=== PATIENT | female | born 1980 | race Caucasian/White ===

== ENCOUNTER 2016-12-25 01:14 | Emergency (ER) | payer MEDICARE, OTHER ==
[~2016-12-25] VITALS: Ht 160 cm; Wt 53.0 kg
[2016-12-25 01:17] VITALS: Ht 160 cm; Wt 53.0 kg
[2016-12-25] MEDS ORDERED: PRED50TA PO (04:50)
[2016-12-25] MEDS ORDERED: ASPI325T4 PO (04:50)
[2016-12-25] MEDS ORDERED: MYCO200S PO (04:50)
[2016-12-25] MEDS ORDERED: TACR1CAP PO (04:50)
[2016-12-25] MEDS ORDERED: TRAM50TA2 PO (04:51)
--- NOTE | 2016-12-25 04:51 | ERD ---
ER Documentation Chief Complaint Date/Time DATE: 12/25/16 TIME: 04:49 Chief Complaint Right Knee and right thigh pain that is not relieved with tramdol 50mg HPI 36-year-old female presents here in emergency department for complaint of right knee pain right thigh pain started 3 days ago, patient discussed the pain as throbbing pain, 6/10 scale, mildly better after taking tramadol. Patient did not have any trauma and affected area. Patient denies any redness or swelling. Patient denies any fever or chills. Patient was referred to an orthopedist specialist for evaluation, but cannot control the pain at this time is why he she is here in emergency department today. Patient denies any numbness or tingling. Patient denies any deformity. Patient denies any limitation movement of the joints. ROS All systems reviewed and are negative except as per history of present illness. 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 CHEST: Clear to auscultation bilaterally. There are no rales, wheezes or rhonchi. HEART: Regular rate and rhythm. No murmurs, clicks, rubs or gallops. No S3 or S4. ABDOMEN: Soft, nontender and nondistended. Good bowel sounds. No rebound or guarding. No gross peritonitis. No gross organomegaly or masses. No Parham sign or McBurney point tenderness. BACK: No midline or flank tenderness. EXTREMITIES: Notable to do full range of motion of the right hip and the right knee without any restriction, no redness or swelling noted in the right knee or the right thigh area, no ecchymosis noted. Equal pulses bilaterally. There is no peripheral clubbing, cyanosis or edema. No focal swelling or erythema. Full range of motion. Grossly neurovascularly intact. NEURO: Alert and oriented. Cranial nerves 2-12 intact. Motor strength in all 4 extremities with 5/5 strength. Sensation grossly intact. Normal speech and gait. SKIN: There is no apparent rash or petechia. The skin is warm and dry. HEMATOLOGIC AND LYMPHATIC: There is no evidence of excessive bruising or lymphedema. No gross cervical, axillary, or inguinal lymphadenopathy. Results 24 hrs PROCEDURE: XR right femur. CLINICAL INDICATION: Pain TECHNIQUE: AP and lateral views of the right femur were performed. COMPARISON: None. FINDINGS: The osseous structures demonstrate normal alignment and mineralization. No acute fracture or dislocation is seen. No osteochondral lesion or periostitis is identified. The soft tissues are unremarkable. IMPRESSION: Normal right femur. RPTAT: HH .Jennifer Lawler MD, Date Time Electronically viewed and signed by .Jennifer Lawler MD, on 12/25/2016 05 :13 .G/ CC: EMILEE LEGER NP PROCEDURE: XR Knee. CLINICAL INDICATION: Right knee pain TECHNIQUE: 3 views of the right knee are available for review. COMPARISON: None available FINDINGS: The osseous structures demonstrate normal alignment and mineralization. No acute fracture or dislocation is identified. There is no periostitis or osteochondral lesion. The joint spaces are well preserved. Vascular calcifications are seen within the soft tissues. IMPRESSION: Arterial atherosclerosis. Otherwise, unremarkable right knee x-rays. No significant interval change. RPTAT: HH .Jennifer Lawler MD, MD Date Time Electronically viewed and signed by .Jennifer Lawler MD, on 12/25/2016 05 :14 .G/ CC: EMILEE LEGER NP Procedures/MDM Medical Decision Making: Patient's pain is most likely consistent with a contusion or a sprain. There is no suspicion for neurovascular compromise. Patient has intact sensation and circulation of the affected extremity. There is low suspicion for septic arthritis. Patient does not have any fever. Radiology exams of the affected area does not show any fracture or dislocation. Disposition: Home. Patient is given prescription for ibuprofen for pain, [place] for severe pain. Patient was advised to elevate the affected area and apply ice on affected area. Patient was advised that if symptoms are worse, numbness, tingling, high fever, unable to move joint, worsening symptoms, to return to emergency department immediately. Otherwise, patient is advised to follow up with the primary care doctor in 5-7 days for reevaluation of symptoms. See orthopedic doctor as referred. Departure Diagnosis: Primary Impression: Right knee pain Chronicity: acute Qualified Code: M25.561 - Acute pain of right knee Additional Impression: Right thigh pain Condition: Stable Patient Instructions: Knee Pain, Uncertain Cause Additional Instructions: Patient is given prescription for ibuprofen for pain, [place] for severe pain. Patient was advised to elevate the affected area and apply ice on affected area. Patient was advised that if symptoms are worse, numbness, tingling, high fever, unable to move joint, worsening symptoms, to return to emergency department immediately. Otherwise, patient is advised to follow up with the primary care doctor in 5-7 days for reevaluation of symptoms. See orthopedic doctor as referred. EMILEE LEGER NP Dec 25, 2016 04:51
--- NOTE | 2016-12-25 05:14 | RADRPT ---
PROCEDURE: XR right femur. CLINICAL INDICATION: Pain TECHNIQUE: AP and lateral views of the right femur were performed. COMPARISON: None. FINDINGS: The osseous structures demonstrate normal alignment and mineralization. No acute fracture or disloc ation is seen. No osteochondral lesion or periostitis is identified. The soft tissues are unremark able. IMPRESSION: Normal right femur. RPTAT: HH .Jennifer Lawler MD, MD Date Time Electronically viewed and signed by .Jennifer Lawler MD, on 12/25/2016 05:13 .G/
--- NOTE | 2016-12-25 05:15 | RADRPT ---
PROCEDURE: XR Knee. CLINICAL INDICATION: Right knee pain TECHNIQUE: 3 views of the right knee are available for review. COMPARISON: None available FINDINGS: The osseous structures demonstrate normal alignment and mineralization. No acute fracture or disloc ation is identified. There is no periostitis or osteochondral lesion. The joint spaces are well pr eserved. Vascular calcifications are seen within the soft tissues. IMPRESSION: Arterial atherosclerosis. Otherwise, unremarkable right knee x-rays. No significant interval [facility] RPTAT: HH .Jennifer Lawler MD, MD Date Time Electronically viewed and signed by .Jennifer Lawler MD, MD on 12/25/2016 05:14 .G/
[2016-12-25] MEDS ORDERED: HYDR-906 PO (05:25)
[2016-12-25] MEDS ORDERED: IBUP400T22 PO (05:25)
[2016-12-25 05:32] VITALS: BP 145/69; PULSE 87; RESP 16
== END 2016-12-25 05:34 | disposition home or self-care (01) ==
LOC: FTE 01:14
DX: M25.561 Pain in right knee (principal); M79.651 Pain in right thigh; E10.9 Type 1 diabetes mellitus without complications; Z79.82 Long term (current) use of aspirin
CPT/HCPCS: 73550; 73562

== ENCOUNTER 2018-10-14 02:24 | Emergency (ER) | END 2018-10-14 05:25 | disposition home or self-care (01) ==

== ENCOUNTER 2018-10-30 14:12 | Emergency (ER) | END 2018-10-30 18:55 | disposition home or self-care (01) ==

== ENCOUNTER 2019-02-16 05:35 | Emergency (ER) | payer OTHER ==
[~2019-02-16] VITALS: Ht 154.9 cm; Wt 55.9 kg
[~2019-02-16 05:35] MED LIST: ASPI-817 PO; CNC30T PO; GABA-528 PO; MULTI PO; MYCO250C3 PO; OMEP20CA16 PO; ONDA4TAB8 PO; OXYC-279 PO; PANT40TA4 PO; PRED5TAB PO; SULF1TAB31 PO; TACR0.5C18 PO; TACR1CAP26 PO
[2019-02-16 05:39] VITALS: Ht 154.9 cm; Wt 55.9 kg
[2019-02-16] MEDS ORDERED: morphine 4 MG/ML VIAL IV STA (06:05)
[2019-02-16] MEDS ORDERED: ONDANSETRON 4 MG INJ IV STA (06:05)
[2019-02-16] MEDS ORDERED: PIPER-TAZO 3.375 GM IV (PMX) 100 ML IVPB ONE (07:30)
--- NOTE | 2019-02-16 07:59 | ERD ---
ER Documentation Chief Complaint Chief Complaint AP AND N/V X YESTERDAY HPI 39-year-old female presents to the emergency department complaining of abdominal pain. Patient was in her usual state of health until yesterday which time she began having the acute onset of a severe epigastric abdominal pain. This was associated with nausea and vomiting. She reports no fevers. She reports no diarrhea. She reports no urinary or gynecologic symptoms. Pain is similar to what she had in the past with a questionable gallstone attack is complications of her surgery that required release of adhesions. She currently reports the pain is moderate to severe. ROS All systems reviewed and are negative except as per history of present illness. Medications Home Meds Active Scripts Ondansetron Hcl* (Zofran*) 4 Mg Tablet, 4 MG PO Q6H for NAUSEA AND/OR VOMITING, #12 TAB Prov:ABIDA ARROYO MD 10/30/18 Oxycodone HCl/Acetaminophen (Percocet 5-325 mg Tablet) 1 Each Tablet, 1 EACH PO Q6 PRN for PAIN, #10 TAB Prov:ABIDA ARROYO MD 10/30/18 Reported Medications Sulfamethoxazole/Trimethoprim* (Bactrim Ds* Tablet) 1 Each Tablet, 1 TAB PO DAILY, TAB TAKE 1 TAB 2 TIMES A WEEK 10/30/18 Omeprazole* (Omeprazole*) 20 Mg Capsule.dr, 20 MG PO DAILY, #30 CAP 10/30/18 Gabapentin* (Gabapentin*) 800 Mg Tablet, 800 MG PO BID, #90 TAB 10/30/18 Cinacalcet* (Sensipar*) 30 Mg Tab, 30 MG PO BID, TAB 10/30/18 Multivitamins* (Theragran*) 1 Tab Tab, 1 TAB PO DAILY, TAB 10/30/18 Pantoprazole* (Pantoprazole*) 40 Mg Tablet.dr, 40 MG PO AC BREAKFAST DINNER, TAB 10/30/18 Aspirin* (Aspirin* EC) 81 Mg Tablet.dr, 81 MG PO DAILY, TAB 10/30/18 Prednisone* (Prednisone*) 5 Mg Tab, 5 MG PO DAILY, TAB 10/30/18 Mycophenolate Mofetil* (Cellcept*) 250 Mg Capsule, 750 MG PO BID, CAP 10/30/18 Tacrolimus* (Prograf*) 0.5 Mg Capsule, 0.5 MG PO Q12, CAP 10/30/18 Tacrolimus* (Prograf*) 1 Mg Capsule, 2 MG PO Q12, CAP 10/30/18 Allergies Allergies: Coded Allergies: metoclopramide (Verified Allergy, Unknown, 10/30/18) PMhx/Soc History of Surgery: Yes (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 She appears uncomfortable. HEENT: Pupils equal, round, and reactive to light. EOMI. There is no scleral icterus. NECK: C-spine is soft and supple, there is no meningismus. There is no cervical lymphadenopathy. LUNGS: Clear to auscultation bilaterally. There are no rales, wheezes or rhonchi. HEART: Regular rate and rhythm, no murmurs, clicks, rubs or gallops. ABDOMEN: Postoperative with surgical scars. Mild epigastric tenderness. No Parham sign. EXTREMITIES: There is no peripheral cyanosis or edema. No focal swelling or erythema. NEURO: The patient moves all four extremities with 5/5 strength. Cranial nerves II - XII are intact. Normal gait. Alert and oriented SKIN: There is no apparent rash or petechiae. HEME/LYMPHATIC: There is no evidence of excessive bruising or lymphedema. PSYCHIATRIC: The patient does not appear anxious or depressed. Result Diagram: 02/16/19 0610 02/16/19 0610 Results 24 hrs Laboratory Tests Test 02/16/19 06:10 02/16/19 06:22 White Blood Count 8.8 10^3/ul Red Blood Count 3.57 10^6/ul Hemoglobin 10.7 g/dl Hematocrit 33.7 % Mean Corpuscular Volume 94.4 fl Mean Corpuscular Hemoglobin 30.0 pg Mean Corpuscular Hemoglobin Concent 31.8 g/dl Red Cell Distribution Width 12.8 % Platelet Count 184 10^3/UL Mean Platelet Volume 11.9 fl Immature Granulocytes % 0.500 % Neutrophils % 84.1 % Lymphocytes % 7.3 % Monocytes % 7.3 % Eosinophils % 0.5 % Basophils % 0.3 % Nucleated Red Blood Cells % 0.0 /100WBC Immature Granulocytes # 0.040 10^3/ul Neutrophils # 7.4 10^3/ul Lymphocytes # 0.6 10^3/ul Monocytes # 0.6 10^3/ul Eosinophils # 0.0 10^3/ul Basophils # 0.0 10^3/ul Nucleated Red Blood Cells # 0.0 10^3/ul Urine Color DAQUAN Urine Clarity SLIGHTLY CLOUDY Urine pH 5.0 Urine Specific [place] 1.026 Urine Ketones 1+ mg/dL Urine Nitrite NEGATIVE mg/dL Urine Bilirubin NEGATIVE mg/dL Urine Urobilinogen 1+ mg/dL Urine Leukocyte Esterase NEGATIVE Yuri/ul Urine Microscopic RBC 1 /HPF Urine Microscopic WBC 3 /HPF Urine Squamous Epithelial Cells FEW /HPF Urine Mucus FEW /HPF Urine Hemoglobin NEGATIVE mg/dL Urine Glucose NEGATIVE mg/dL Urine Total Protein NEGATIVE mg/dl Sodium Level 139 mmol/L Potassium Level 4.3 mmol/L Chloride Level 113 mmol/L Carbon Dioxide Level 18 mmol/L Anion Gap 8 Blood Urea Nitrogen 17 mg/dl Creatinine 0.68 mg/dl Est Glomerular Filtrat Rate mL/min > 60 mL/min Glucose Level 95 mg/dl Calcium Level 10.8 mg/dl Total Bilirubin 1.6 mg/dl Direct Bilirubin 0.80 mg/dl Indirect Bilirubin 0.8 mg/dl Aspartate Amino Transf (AST/SGOT) 69 IU/L Alanine Aminotransferase (ALT/SGPT) 60 IU/L Alkaline Phosphatase 65 IU/L Total Protein 6.5 g/dl Albumin 3.7 g/dl Globulin 2.80 g/dl Albumin/Globulin Ratio 1.32 Lipase 2667 U/L POC Beta HCG, Qualitative NEGATIVE Current Medications Medications Dose Sig/Williams Start Time Status Last (Trade) Ordered Route PRN Stop Time Admin Dose Reason Admin Morphine 4 mg ONCE STAT 02/16/19 DC 02/16/19 Sulfate IV 06:05 06:13 (morphine) 02/16/19 06:06 Ondansetron 4 mg ONCE STAT 02/16/19 DC 02/16/19 HCl (Zofran IV 06:05 06:12 Inj) 02/16/19 06:06 Piperacillin 100 ml @ ONCE ONCE 02/16/19 Sod/ 200 mls/hr IVPB 07:30 Tazobactam 02/16/19 07:59 Sod Procedures/MDM Patient was taken to a room, seen and evaluated. Comfort measures were initiated. Diagnostic tests were ordered and reviewed. 3 LEAD RHYTHM STRIP: Normal sinus rhythm without ectopy RADIOLOGY: Reviewed with the radiologist CONSULTATION: Hospitalist was notified for admission REEVALUATION: 0745: Diagnostic tests were appreciated. Patient was reevaluated and appeared much more comfortable with serial examinations of her abdomen remained benign MEDICAL DECISION MAKIN-year-old female who is immunocompromised secondary to medications from her transplant presents to the emergency department with ab dominal pain. Differential diagnosis entertained included pancreatitis, cholecystitis, other high risk intra-abdominal concerns. Diagnostic tests indicate that she has cholecystitis, which is obviously concerning giving her immunocompromise state. Lipase is pending and she may have pancreatitis as well. Patient will be admitted to the hospital for IV antibiotics, IV fluids. She is pending a ultrasound for further diagnostic accuracy. Departure Diagnosis: Primary Impression: Cholecystitis Condition: Serious KELLY VILLALPANDO Feb 16, 2019 07:59
[2019-02-16] MEDS ORDERED: METHYLPREDNISOLONE 125 MG INJ IV ONE (08:00)
[2019-02-16 08:56] VITALS: BP 101/71; PULSE 84; RESP 18
== END 2019-02-16 11:53 | disposition short-term general hospital (02) ==
LOC: E/R 05:35
DX: K81.9 Cholecystitis, unspecified (principal); Z79.82 Long term (current) use of aspirin
CPT/HCPCS: 36415; 74176; 76705; 80053; 81001; 81003; 81025; 83690; 85025; 96374; 96375; J2270; J2405; J2543; J2930; Z7502

== ENCOUNTER 2019-07-19 13:05 | Day surgery (SDC) | payer OTHER ==
[~2019-07-19] VITALS: Ht 154.9 cm; Wt 54.9 kg
[~2019-07-19 13:05] MED LIST changes: +CINA30TA4 PO; -CNC30T PO
[2019-07-19 14:56] VITALS: Ht 154.9 cm; Wt 54.9 kg
[2019-07-19 16:23] VITALS: BP 155/74; PULSE 84; RESP 16
[2019-07-19 16:36] VITALS: BP 155/74; PULSE 85; RESP 14
[2019-07-19] MEDS ORDERED: FENTAnyl 50 MCG/ML VIAL ONE ×2 (18:41→18:42)
[2019-07-19] MEDS ORDERED: MIDAZOLAM 1 MG/ML 2 ML INJ ONE ×3 (18:42)
[2019-07-19 18:53] VITALS: BP 107/59; PULSE 72; RESP 18
== END 2019-07-19 19:15 | disposition home or self-care (01) ==
LOC: GIL 13:05
PROVIDERS: ATTEND Internal Medicine Gastroenterology
DX: K20.9 Esophagitis, unspecified (principal)
CPT/HCPCS: 84703; 88305; J2250; J3010